=== PATIENT | female | born 1985 ===

== ENCOUNTER → 2022-10-26 | Outpatient (REF) | payer BC | LOC: M LAB REF 17:09 | PROVIDERS: ATTEND Internal Medicine Nephrology | DX: I15.8 Other secondary hypertension (principal) ==

== ENCOUNTER → 2022-10-28 | Outpatient (REF) | payer BC | LOC: M LAB REF 17:19 | PROVIDERS: ATTEND Internal Medicine Nephrology | DX: I15.8 Other secondary hypertension (principal) ==